=== PATIENT | female | born 1980 | race Caucasian/White ===

== ENCOUNTER 2022-10-20 13:45 | Outpatient (RCR) | payer BC, SELFPAY | END 2022-12-30 14:50 | disposition home or self-care (01) | PROVIDERS: PCP Physician Assistant Medical; Visit Provider Family Medicine | DX: M23.8X1 Other internal derangements of right knee (principal); M79.604 Pain in right leg; M25.561 Pain in right knee; Z51.89 Encounter for other specified aftercare | CPT/HCPCS: 97110; 97140; 97161 ==

== ENCOUNTER 2023-01-04 11:02 | Outpatient (CLI) | payer BC, SELFPAY ==
--- NOTE | 2023-01-04 11:30 | CRLHL7_ITS ---
For Patients: As a result of the Century Cures Act, medical imaging exams and procedure reports are released immediately into your electronic medical record. You may view this report before your referring provider. If you have questions, please contact your health care provider. BILATERAL SCREENING MAMMOGRAM WITH COMPUTER-AIDED DETECTION AND TOMOSYNTHESIS TECHNIQUE: CC and MLO views were obtained. These mammographic images have been obtained using full-field digital technique. These mammographic images were interpreted with the benefit of computer-aided detection. Breast Tomosynthesis was used in this interpretation. COMPARISON FILM: 07/22/21. FINDINGS: There are scattered areas of fibroglandular density IMPRESSION: There is no radiographic evidence for malignancy. ASSESSMENT: BI-RADS Category 2: Benign RECOMMENDATION: Routine screening mammogram in 1 year. A lay language report of this examination will be provided to the patient. Jeronimo Pascual M.D. Diagnostic Radiologist [email or web address] GENE/Dictated by: Jeronimo Pascual MD @ 01/04/2023 11:55:00 AM (Electronically Signed)
== END 2023-01-04 11:03 | disposition home or self-care (01) ==
LOC: MAMMO 11:03
PROVIDERS: PCP Physician Assistant Medical; Visit Provider Physician Assistant Medical
DX: Z12.31 Encounter for screening mammogram for malignant neoplasm of breast (principal)
CPT/HCPCS: 77063; 77067

== ENCOUNTER 2023-08-31 09:57 | Outpatient (CLI) | payer BC, SELFPAY | END 2023-08-31 09:58 | disposition home or self-care (01) | LOC: NFLDREF 09-03 09:58 | PROVIDERS: PCP Physician Assistant Medical; Referring Provider Physician Assistant Medical; Visit Provider Physician Assistant Medical | DX: Z00.00 Encounter for general adult medical examination without abnormal findings (principal); E55.9 Vitamin D deficiency, unspecified; R53.83 Other fatigue; Z13.6 Encounter for screening for cardiovascular disorders; Z13.1 Encounter for screening for diabetes mellitus; Z13.29 Encounter for screening for other suspected endocrine disorder; Z13.9 Encounter for screening, unspecified | CPT/HCPCS: 80053; 80061; 82306; 82607; 84439; 84443 ==

== ENCOUNTER 2023-09-29 09:01 | Outpatient (CLI) | payer BC, SELFPAY ==
--- NOTE | 2023-09-29 09:15 | CRLHL7_ITS ---
For Patients: As a result of the Century Cures Act, medical imaging exams and procedure reports are released immediately into your electronic medical record. You may view this report before your referring provider. If you have questions, please contact your health care provider. Indication: Cluster headache. Technique: Multiplanar, multisequence MRI of the brain was performed without intravenous contrast. Comparison: None relevant available. Findings: The corpus callosum, pituitary gland and clivus appear intact. Craniocervical junction appears preserved. There is no restricted diffusion. No intracranial hemorrhage. The ventricles are proportionate to the cerebral sulci. The 4th ventricle appears midline. The basal cisterns appear patent. No abnormal extra-axial fluid collection identified. There is no intracranial mass, abnormal mass-effect or midline shift identified. Major intracranial vascular flow voids appear grossly intact. Both globes are preserved. Right mastoid effusion. Impression: 1. No acute intracranial process. 2. Moderate right mastoid effusion. Dictated by Mook Ramirez MD @ 09/29/2023 2:16:28 PM (Electronically Signed)
== END 2023-09-29 09:02 | disposition home or self-care (01) ==
LOC: MRI 09:02
PROVIDERS: PCP Physician Assistant Medical; Visit Provider Emergency Medicine
DX: G44.009 Cluster headache syndrome, unspecified, not intractable (principal)
CPT/HCPCS: 70551

== ENCOUNTER 2023-10-28 08:45 | Outpatient (CLI) | payer BC, SELFPAY ==
--- NOTE | 2023-10-28 09:00 | CRLHL7_ITS ---
For Patients: As a result of the Century Cures Act, medical imaging exams and procedure reports are released immediately into your electronic medical record. You may view this report before your referring provider. If you have questions, please contact your health care provider. Indication: Hyperthyroidism Technique: Nuclear medicine I 123 uptake and scan after the oral administration of 295 microcuries of I 123 Comparison: None Findings: Radioactive iodine uptake at 24 hours is elevated at 37 percent, normal is up to 30 percent. Images demonstrate a sizable cold nodule within the left lower thyroid, otherwise diffuse homogeneous uptake. No definitive hot nodules. Impression: Findings are suspicious for Graves disease with sizable cold nodule within the left lower thyroid. Recommend thyroid ultrasound to further characterize/evaluate this cold nodule for biopsy. Dictated by Logan Bennett MD @ 10/29/2023 11:54:42 AM (Electronically Signed)
== END 2023-10-28 08:46 | disposition home or self-care (01) ==
LOC: NM 08:46
PROVIDERS: PCP Physician Assistant Medical; Visit Provider Internal Medicine Endocrinology, Diabetes & Metabolism
DX: E05.90 Thyrotoxicosis, unspecified without thyrotoxic crisis or storm (principal)
CPT/HCPCS: 78014; A9509

== ENCOUNTER 2023-11-08 13:49 | Outpatient (CLI) | payer BC, SELFPAY ==
--- NOTE | 2023-11-08 14:00 | CRLHL7_ITS ---
For Patients: As a result of the Cures Act, medical imaging exams and procedure reports are released immediately into your electronic medical record. You may view this report before your referring provider. If you have questions, please contact your health care provider. THYROID ULTRASOUND INDICATION Goiter. FINDINGS Right thyroid lobe measures 5.9 x 1.5 x 2.1 cm. Left thyroid lobe measures 6.3 x 1.8 x 2.1 cm. Heterogeneous echotexture to the thyroid gland. Left inferior solid nodule with coarse calcification measuring 2.1 x 1.6 x 1.7 cm TR category 4. Increased vascularity diffusely. Heterogeneous echotexture within the thyroid gland. IMPRESSION 1. 2.1 cm left inferior thyroid nodule. TR category 4. 2. Heterogeneous echotexture with increased vascularity nonspecific, could be seen with thyroiditis. TR4: Moderately Suspicious FNA if greater than or equal to 1.5 cm Follow if greater than or equal to 1 cm Keira Rodriguez M.D. Diagnostic/Breast Radiologist [email or web address] Transcribed: 9:52 am DW/Dictated by: Keira Rodriguez MD @ 11/09/2023 4:17:00 AM (Electronically Signed)
== END 2023-11-08 13:50 | disposition home or self-care (01) ==
LOC: US 13:50
PROVIDERS: PCP Physician Assistant Medical; Visit Provider Internal Medicine Endocrinology, Diabetes & Metabolism
DX: E04.9 Nontoxic goiter, unspecified (principal)
CPT/HCPCS: 76536

== ENCOUNTER 2023-11-19 09:02 | Outpatient (CLI) | payer BC, SELFPAY ==
--- NOTE | 2023-11-19 09:15 | CRLHL7_ITS ---
For Patients: As a result of the Century Cures Act, medical imaging exams and procedure reports are released immediately into your electronic medical record. You may view this report before your referring provider. If you have questions, please contact your health care provider. INDICATION : Left thyroid lobe nodule TECHNIQUE : Ultrasound-guided fine needle aspiration of thyroid nodule. Comparison : 11/08/2023 FINDINGS : PROCEDURE: After the informed consent and time-out, multiple fine needle aspirations were obtained from the thyroid nodule. Fine needle performed. 25 gauge needles were used. Lidocaine was used for local anesthesia. The preliminary cytology was adequate for interpretation. Real-time imaging was used for guidance and needle placement. Post imaging ultrasound demonstrates no immediate complication. IMPRESSION : Successful fine needle aspiration of left thyroid nodule. Dictated by Jeronimo Pascual MD @ 11/19/2023 12:10:58 PM (Electronically Signed)
== END 2023-11-19 09:03 | disposition home or self-care (01) ==
LOC: US 09:02
PROVIDERS: PCP Physician Assistant Medical; Visit Provider Internal Medicine Endocrinology, Diabetes & Metabolism
DX: E04.1 Nontoxic single thyroid nodule (principal)
CPT/HCPCS: 10005; 88173

== ENCOUNTER 2024-04-03 13:40 | Outpatient (CLI) | payer BC, SELFPAY ==
--- NOTE | 2024-04-03 14:00 | CRLHL7_ITS ---
For Patients: As a result of the Century Cures Act, medical imaging exams and procedure reports are released immediately into your electronic medical record. You may view this report before your referring provider. If you have questions, please contact your health care provider. BILATERAL SCREENING MAMMOGRAM WITH COMPUTER-AIDED DETECTION AND TOMOSYNTHESIS TECHNIQUE: CC and MLO views were obtained. These mammographic images have been obtained using full-field digital technique. These mammographic images were interpreted with the benefit of computer-aided detection. Breast Tomosynthesis was used in this interpretation. COMPARISON FILM: 01/04/23, 07/22/21. FINDINGS: There are scattered areas of fibroglandular density IMPRESSION: There is no radiographic evidence for malignancy. ASSESSMENT: BI-RADS Category 1: Negative RECOMMENDATION: Routine screening mammogram in 1 year. A lay language report of this examination will be provided to the patient. Jeronimo Pascual M.D. Diagnostic Radiologist [email or web address] Transcribed: 4:27 [email or web address] taylor/Dictated by: Jeronimo Pascual MD @ 04/04/2024 8:54:00 AM (Electronically Signed)
== END 2024-04-03 13:41 | disposition home or self-care (01) ==
LOC: MAMMO 13:41
PROVIDERS: PCP Physician Assistant Medical; Visit Provider Physician Assistant Medical
DX: Z12.31 Encounter for screening mammogram for malignant neoplasm of breast (principal)
CPT/HCPCS: 77063; 77067

== ENCOUNTER 2024-10-26 10:31 | Outpatient (CLI) | payer BC, SELFPAY | END 2024-10-26 10:32 | disposition home or self-care (01) | LOC: FRMREF 10:31 | PROVIDERS: PCP Physician Assistant Medical; Visit Provider Physician Assistant Medical | DX: Z00.00 Encounter for general adult medical examination without abnormal findings (principal); E05.90 Thyrotoxicosis, unspecified without thyrotoxic crisis or storm; Z13.0 Encounter for screening for diseases of the blood and blood-forming organs and certain disorders involving the immune mechanism | CPT/HCPCS: 80053; 80061; 82728 ==